=== PATIENT | male | born 1975 | race Caucasian/White ===

== ENCOUNTER → 2020-02-07 | Outpatient (CLI) | payer BC | END | disposition home or self-care (01) | LOC: LABWHC1 14:14 | PROVIDERS: ATTEND Emergency Medicine | DX: Z20.828 Contact with and (suspected) exposure to other viral communicable diseases (principal) | CPT/HCPCS: U0003; C9803 ==

== ENCOUNTER → 2020-08-14 | Outpatient (CLI) | payer BC ==
[2020-08-14 10:57] LABS: ALT 38 U/L (4-49); AST 35 U/L (17-59); African American GFR (CKD) >90 (>60 ml/min/1.73 sqM); Albumin 4.7 g/dL (3.5-5.0); Alkaline Phosphatase 57 U/L (38-126); Anion Gap 11 mmol/L; Blood Urea Nitrogen 14 mg/dL (9-20); Calcium 9.6 mg/dL (8.4-10.2); Carbon Dioxide 23 mmol/L (22-30); Chloride 105 mmol/L (98-107); Cholesterol 220 mg/dL (<200); Glucose 97 mg/dL (74-99); HDL Cholesterol 58 mg/dL (40-60); LDL Cholesterol,Calculated 150 mg/dL (0-99); Non-African American GFR(CKD) >90 (>60 ml/min/1.73 sqM); Potassium 4.4 mmol/L (3.5-5.1); Sodium 139 mmol/L (137-145); Total Bilirubin 0.9 mg/dL (0.2-1.3); Total Protein 7.3 g/dL (6.3-8.2); Triglycerides 60 mg/dL (<150)
[2020-08-14 11:16] LABS: Basophils % (A) 1 %; Eosinophils # (A) 0.1 k/uL (0-0.7); Eosinophils % (A) 2 %; HGB 16.6 gm/dL (13.0-17.5); Lymphocytes # (A) 1.4 k/uL (1.0-4.8); Lymphocytes % (A) 24 %; MCH 30.7 pg (25.0-35.0); MCHC 35.3 g/dL (31.0-37.0); MCV 87.1 fL (80.0-100.0); Mean Platelet Volume 8.1; Monocytes # (A) 0.3 k/uL (0-1.0); Monocytes % (A) 5 %; Neutrophils # (A) 3.8 k/uL (1.3-7.7); Neutrophils % (A) 66 %; Platelet Count 231 k/uL (150-450); RDW 12.1 % (11.5-15.5); WBC 5.8 k/uL (3.8-10.6)
--- NOTE | 2020-08-14 13:19 | ECHOS ---
STRESS ECHOCARDIOGRAM LUMASON: N/A Vial INDICATIONS: Dizziness. MEDICATIONS: BASELINE HEART RATE: 65 BASELINE BLOOD PRESSURE: 107/43 MAXIMUM HEART RATE: 160 MAXIMUM BLOOD PRESSURE: 215/87 85% MPHR: 150 100% MPHR: 177 METS: 15 MAXIMUM STAGE REACHED: V TOTAL EXERCISE TIME: 13-1/2 minutes. CLINICAL INFORMATION: Baseline EKG shows sinus rhythm, normal axis, normal intervals. Patient exercised on Graham protocol for a total of 13-1/2 minutes achieving 15 METs, 90% of predicted maximal heart rate without chest pain. At peak exercise, there was [address]- segment depression noted. Baseline echo shows normal left ventricular size, wall motion and systolic function. Postexercise, there is normal hyperdynamic response of all segments of myocardium noted. CONCLUSIONS: 1. Excellent exercise tolerance. 2. [address]-segment depression at peak exercise. 3. Negative stress echo. MMODL / IJN: [id number] /
== END | disposition home or self-care (01) ==
LOC: RADNMMAIN 09:05
PROVIDERS: ATTEND Family Medicine
DX: R94.39 Abnormal result of other cardiovascular function study (principal); R00.2 Palpitations; Z00.00 Encounter for general adult medical examination without abnormal findings
CPT/HCPCS: 80053; 80061; 83036; 84443; 85025; 93351

== ENCOUNTER 2021-04-28 10:38 | Emergency (ER) | payer BC, OTHER ==
[2021-04-28 10:47] VITALS: RESP 18; TEMP 98
[2021-04-28] MEDS ORDERED: SODIUM CHLORIDE 0.9% 500 ML 500 ML IV STA (11:04)
--- NOTE | 2021-04-28 11:15 | ED ---
General Adult HPI - General Chief complaint: Arrhythmia/Palpitations Stated complaint: Sweaty, elevated pulse Time Seen by Provider: 04/28/21 10:45 Source: patient, RN notes reviewed, old records reviewed Mode of arrival: ambulatory Limitations: no limitations - History of Present Illness Initial comments: This is a 45-year-old male who presents emergency Department complaining that his heart was racing earlier today and he became very sweaty. Patient states he can feel it in his chest beating very fast and hard. Patient states he took his blood pressure was extremely elevated compared to his baseline and his heart rate was in the 90s which is at least 30 point are normal. Patient states she's had 3 episodes like this since the sprain. Patient states it occurred the other day in the store and he was profusely diaphoretic when it occurred. Patient denies any recent fever chills or cough. Patient denies any abdominal pain. Patient is not vomiting diarrhea. Patient denies leg swelling or calf tenderness. Patient states he had an episode of this back in the spring he was seen by Dr. Alvarez and worked up with a stress test and an echo of the heart was all normal. Patient states he also ran a 10K race recently and had no symptoms. - Related Data Home Medications Medication Instructions Recorded Confirmed Fish Oil/Dha/Epa [Fish Oil 1,200 1 cap PO DAILY 11/14/14 04/28/21 mg Fish Oil] Ascorbic Acid/Collagen Hydr 1 cap PO DAILY 04/28/21 04/28/21 [Collagen Plus Vit C Capsule] Biotin 5 mg PO DAILY 04/28/21 04/28/21 Cholecalciferol [Vitamin D3 (125 125 mcg PO DAILY 04/28/21 04/28/21 Mcg = 5000 Iu)] Glucosam/Harjinder-Msm1/C/Eduardo/Bosw 1 tab PO DAILY 04/28/21 04/28/21 [Glucosamine-Chondroitin Tablet] Loratadine [Claritin] 10 mg PO DAILY 04/28/21 04/28/21 Psyllium Husk (with Sugar) 12 gm PO DAILY 04/28/21 04/28/21 [Metamucil Powder] Turmeric Root Extract [Turmeric] 500 mg PO DAILY 04/28/21 04/28/21 Ubidecarenone [Co Q-10] 100 mg PO DAILY 04/28/21 04/28/21 Allergies Allergy/AdvReac Type Severity Reaction Status Date / Time ragweed pollen Allergy Dyspnea Verified 04/28/21 12:12 Review of Systems ROS Statement: Those systems with pertinent positive or pertinent negative responses have been documented in the HPI. ROS Other: All systems not noted in ROS Statement are negative. Past Medical History Additional Past Medical History / Comment(s): NASAL FX 11/05/14 (PLAYING BASKETBALL) History of Any Multi-Drug Resistant Organisms: None Reported Additional Past Surgical History / Comment(s): WISDOM TEETH Past Anesthesia/Blood Transfusion Reactions: No Reported Reaction Past Psychological History: No Psychological Hx Reported Smoking Status: Former smoker Past Alcohol Use History: Occasional Past Drug Use History: None Reported - Past Family History Mother Additional Family Medical History / Comment(s): OSTEOPOROSIS General Exam - General Exam Comments Initial Comments: GENERAL: Patient is well-developed and well-nourished. Patient is nontoxic and well- hydrated and is in mild distress. ENT: Neck is soft and supple. No significant lymphadenopathy is noted. Oropharynx is clear. Moist mucous membranes. Neck has full range of motion without eliciting any pain. EYES: The sclera were anicteric and conjunctiva were pink and moist. Extraocular movements were intact and pupils were equal round and reactive to light. Eyelids were unremarkable. PULMONARY: Unlabored respirations. Good breath sounds bilaterally. No audible rales rhonchi or wheezing was noted. CARDIOVASCULAR: There is a regular rate and rhythm without any murmurs gallops or rubs. ABDOMEN: Soft and nontender with normal bowel sounds. SKIN: Skin is clear with no lesions or rashes and otherwise unremarkable. NEUROLOGIC: Patient is alert and oriented x3. Cranial nerves II through XII are grossly intact. Motor and sensory are also intact. Normal speech, volume and content. Symmetrical smile. MUSCULOSKELETAL: Normal extremities with adequate strength and full range of motion. LYMPHATICS: No significant lymphadenopathy is noted PSYCHIATRIC: Normal psychiatric evaluation. Limitations: no limitations Course Vital Signs 04/28/21 04/28/21 10:43 12:21 Temperature 98 F Pulse Rate 97 70 Respiratory 18 18 Rate Blood Pressure 162/74 140/89 O2 Sat by Pulse 100 99 Oximetry Medical Decision Making - Medical Decision Making EKG shows a normal sinus rhythm at 100 bpm AL interval 256 QRS is 92 QT interval 320 QTC is 448. Patient's EKG shows no ST segment elevation or depression. EKG does have quite a bit of artifact. - Lab Data Result diagrams: 04/28/21 11:45 04/28/21 11:45 Lab Results 04/28/21 04/28/21 04/28/21 Range/Units 11:45 11:45 11:45 WBC 5.0 (3.8-10.6) k/uL RBC 5.04 (4.30-5.90) m/uL Hgb 15.6 (13.0-17.5) gm/dL Hct 45.8 (39.0-53.0) % MCV 90.8 (80.0-100.0) fL MCH 30.9 (25.0-35.0) pg MCHC 34.1 (31.0-37.0) g/dL RDW 12.3 (11.5-15.5) % Plt Count 193 (150-450) k/uL MPV 8.1 Neutrophils % 62 % Lymphocytes % 27 % Monocytes % 6 % Eosinophils % 3 % Basophils % 1 % Neutrophils # 3.1 (1.3-7.7) k/uL Lymphocytes # 1.3 (1.0-4.8) k/uL Monocytes # 0.3 (0-1.0) k/uL Eosinophils # 0.2 (0-0.7) k/uL Basophils # 0.0 (0-0.2) k/uL PT 10.9 (9.0-12.0) sec INR 1.0 (<1.2) APTT 25.8 (22.0-30.0) sec D-Dimer <0.17 (<0.60) mg/L FEU Sodium 138 (137-145) mmol/L Potassium 4.5 (3.5-5.1) mmol/L Chloride 101 (98-107) mmol/L Carbon Dioxide 26 (22-30) mmol/L Anion Gap 11 mmol/L BUN 13 (9-20) mg/dL Creatinine 0.78 (0.66-1.25) mg/dL Est GFR (CKD-EPI)AfAm >90 (>60 ml/min/1.73 sqM) Est GFR (CKD-EPI)NonAf >90 (>60 ml/min/1.73 sqM) Glucose 116 H (74-99) mg/dL Calcium 9.3 (8.4-10.2) mg/dL Magnesium 1.9 (1.6-2.3) mg/dL Total Bilirubin 0.5 (0.2-1.3) mg/dL AST 32 (17-59) U/L ALT 37 (4-49) U/L Alkaline Phosphatase 46 (38-126) U/L Troponin I (0.000-0.034) ng/mL Total Protein 7.3 (6.3-8.2) g/dL Albumin 4.5 (3.5-5.0) g/dL TSH <0.015 L (0.465-4.680) mIU/L Urine Opiates Screen (NotDetected) Ur Oxycodone Screen (NotDetected) Urine Methadone Screen (NotDetected) Ur Propoxyphene Screen (NotDetected) Ur Barbiturates Screen (NotDetected) U Tricyclic Antidepress (NotDetected) Ur Phencyclidine Scrn (NotDetected) Ur Amphetamines Screen (NotDetected) U Methamphetamines Scrn (NotDetected) U Benzodiazepines Scrn (NotDetected) Urine Cocaine Screen (NotDetected) U Marijuana (THC) Screen (NotDetected) 04/28/21 04/28/21 Range/Units 11:45 12:04 WBC (3.8-10.6) k/uL RBC (4.30-5.90) m/uL Hgb (13.0-17.5) gm/dL Hct (39.0-53.0) % MCV (80.0-100.0) fL MCH (25.0-35.0) pg MCHC (31.0-37.0) g/dL RDW (11.5-15.5) % Plt Count (150-450) k/uL MPV Neutrophils % % Lymphocytes % % Monocytes % % Eosinophils % % Basophils % % Neutrophils # (1.3-7.7) k/uL Lymphocytes # (1.0-4.8) k/uL Monocytes # (0-1.0) k/uL Eosinophils # (0-0.7) k/uL Basophils # (0-0.2) k/uL PT (9.0-12.0) sec INR (<1.2) APTT (22.0-30.0) sec D-Dimer (<0.60) mg/L FEU Sodium (137-145) mmol/L Potassium (3.5-5.1) mmol/L Chloride (98-107) mmol/L Carbon Dioxide (22-30) mmol/L Anion Gap mmol/L BUN (9-20) mg/dL Creatinine (0.66-1.25) mg/dL Est GFR (CKD-EPI)AfAm (>60 ml/min/1.73 sqM) Est GFR (CKD-EPI)NonAf (>60 ml/min/1.73 sqM) Glucose (74-99) mg/dL Calcium (8.4-10.2) mg/dL Magnesium (1.6-2.3) mg/dL Total Bilirubin (0.2-1.3) mg/dL AST (17-59) U/L ALT (4-49) U/L Alkaline Phosphatase (38-126) U/L Troponin I <0.012 (0.000-0.034) ng/mL Total Protein (6.3-8.2) g/dL Albumin (3.5-5.0) g/dL TSH (0.465-4.680) mIU/L Urine Opiates Screen Not Detected (NotDetected) Ur Oxycodone Screen Not Detected (NotDetected) Urine Methadone Screen Not Detected (NotDetected) Ur Propoxyphene Screen Not Detected (NotDetected) Ur Barbiturates Screen Not Detected (NotDetected) U Tricyclic Antidepress Not Detected (NotDetected) Ur Phencyclidine Scrn Not Detected (NotDetected) Ur Amphetamines Screen Not Detected (NotDetected) U Methamphetamines Scrn Not Detected (NotDetected) U Benzodiazepines Scrn Not Detected (NotDetected) Urine Cocaine Screen Not Detected (NotDetected) U Marijuana (THC) Screen Not Detected (NotDetected) Disposition Clinical Impression: Palpitations, Abnormal TSH Disposition: HOME SELF-CARE Condition: Good Instructions (If sedation given, give patient instructions): Heart Palpitations (ED) Is patient prescribed a controlled substance at d/c from ED?: No Referrals: Calixto Cardenas MD [Primary Care Provider] - 1-2 days Bruce Alvarez MD [STAFF PHYSICIAN] - 1-2 days Time of Disposition: 12:41
[2021-04-28 12:06] LABS: ALT 37 U/L (4-49); AST 32 U/L (17-59); African American GFR (CKD) >90 (>60 ml/min/1.73 sqM); Albumin 4.5 g/dL (3.5-5.0); Alkaline Phosphatase 46 U/L (38-126); Anion Gap 11 mmol/L; Blood Urea Nitrogen 13 mg/dL (9-20); Calcium 9.3 mg/dL (8.4-10.2); Carbon Dioxide 26 mmol/L (22-30); Chloride 101 mmol/L (98-107); Glucose 116 mg/dL (74-99); Magnesium 1.9 mg/dL (1.6-2.3); Non-African American GFR(CKD) >90 (>60 ml/min/1.73 sqM); Potassium 4.5 mmol/L (3.5-5.1); Sodium 138 mmol/L (137-145); Total Bilirubin 0.5 mg/dL (0.2-1.3); Total Protein 7.3 g/dL (6.3-8.2)
[2021-04-28 12:09] LABS: Basophils % (A) 1 %; Eosinophils # (A) 0.2 k/uL (0-0.7); Eosinophils % (A) 3 %; HCT 45.8 % (39.0-53.0); HGB 15.6 gm/dL (13.0-17.5); Lymphocytes # (A) 1.3 k/uL (1.0-4.8); Lymphocytes % (A) 27 %; MCH 30.9 pg (25.0-35.0); MCHC 34.1 g/dL (31.0-37.0); MCV 90.8 fL (80.0-100.0); Mean Platelet Volume 8.1; Monocytes # (A) 0.3 k/uL (0-1.0); Monocytes % (A) 6 %; Neutrophils # (A) 3.1 k/uL (1.3-7.7); Neutrophils % (A) 62 %; Platelet Count 193 k/uL (150-450); RBC 5.04 m/uL (4.30-5.90); RDW 12.3 % (11.5-15.5)
[2021-04-28 12:19] LABS: Partial Thromboplastin Time 25.8 sec (22.0-30.0); Prothrombin Time 10.9 sec (9.0-12.0)
[2021-04-28 12:24] LABS: Amphetamine Screen,Urine Not Detected (NotDetected); Barbiturate Screen,Urine Not Detected (NotDetected); Benzodiazepines Screen,Urine Not Detected (NotDetected); Cocaine Screen,Urine Not Detected (NotDetected); Methadone Screen, Urine Not Detected (NotDetected); Opiate Screen,Urine Not Detected (NotDetected); Oxycodone Screen, Urine Not Detected (NotDetected); Phencyclidine Screen,Urine Not Detected (NotDetected); Tricyclic Antidepressant,Urine Not Detected (NotDetected); Urn Cannabinoid Scrn Not Detected (NotDetected)
--- NOTE | 2021-04-28 12:37 | XR ---
EXAMINATION TYPE: XR chest 2V DATE OF EXAM: 04/28/2021 COMPARISON: NONE HISTORY: 45 years Male. STUDY INDICATION GIVEN: dysrhythmia . TECHNIQUE: Frontal and lateral chest radiographs. IMPRESSION: Somewhat patchy bibasilar left greater than right opacities concerning for atelectasis and/or focal p neumonia. Small bilateral perihilar lesions of increased density may be reflective of prior granulomatous disea se and/or vessel en face. No pneumothorax or effusion. Normal cardiomediastinal silhouette. No acute osseous abnormality.
[2021-04-28 14:02] VITALS: BP 136/79; PULSE 78
== END 2021-04-28 14:02 | disposition home or self-care (01) ==
LOC: EC 10:38
DX: R00.2 Palpitations (principal); R94.6 Abnormal results of thyroid function studies; Z87.891 Personal history of nicotine dependence
CPT/HCPCS: 36415; 71046; 80053; 80306; 83735; 84439; 84443; 84484; 85025; 85379; 85610; 85730; 93005; 99285

== ENCOUNTER 2023-06-12 08:07 | Emergency (ER) | payer BC, OTHER ==
[2023-06-12 08:54] VITALS: TEMP 98.5
[2023-06-12] MEDS: SODIUM CHLORIDE 0.9% 1,000 ML IV STA (08:56)
[2023-06-12 09:11] LABS: Basophils # (A) 0.1 k/uL (0-0.2); Basophils % (A) 1 %; Eosinophils # (A) 0.2 k/uL (0-0.7); Eosinophils % (A) 4 %; HCT 46.8 % (39.0-53.0); HGB 16.1 gm/dL (13.0-17.5); Lymphocytes # (A) 1.3 k/uL (1.0-4.8); Lymphocytes % (A) 28 %; MCH 30.3 pg (25.0-35.0); MCHC 34.3 g/dL (31.0-37.0); MCV 88.3 fL (80.0-100.0); Monocytes # (A) 0.3 k/uL (0-1.0); Monocytes % (A) 5 %; Neutrophils # (A) 2.8 k/uL (1.3-7.7); Neutrophils % (A) 60 %; Platelet Count 220 k/uL (150-450); RDW 12.2 % (11.5-15.5); WBC 4.7 k/uL (3.8-10.6)
--- NOTE | 2023-06-12 09:17 | XR ---
EXAMINATION TYPE: XR chest 2V DATE OF EXAM: 06/12/2023 COMPARISON: NONE TECHNIQUE: PA and lateral views submitted. HISTORY: Pain FINDINGS: The lungs are clear and there is no pneumothorax, pleural effusion, or focal pneumonia. Heart size normal and no overt failure. Osseous structures demonstrate hypertrophic and degenerative changes of the spine. AC joint arthropathy. IMPRESSION: 1. No acute process.
[2023-06-12 09:21] LABS: ALT 54 U/L (4-49); AST 47 U/L (17-59); African American GFR (CKD) >90 (>60 ml/min/1.73 sqM); Albumin 4.5 g/dL (3.5-5.0); Alkaline Phosphatase 49 U/L (38-126); Anion Gap 8 mmol/L; Blood Urea Nitrogen 13 mg/dL (9-20); Calcium 9.7 mg/dL (8.4-10.2); Carbon Dioxide 24 mmol/L (22-30); Chloride 107 mmol/L (98-107); Glucose 111 mg/dL (74-99); Magnesium 1.8 mg/dL (1.6-2.3); Non-African American GFR(CKD) >90 (>60 ml/min/1.73 sqM); Potassium 4.2 mmol/L (3.5-5.1); Sodium 139 mmol/L (137-145); Total Bilirubin 0.9 mg/dL (0.2-1.3); Total Protein 7.2 g/dL (6.3-8.2)
[2023-06-12 09:25] LABS: INR 1.1 (<1.2); Partial Thromboplastin Time 26.3 sec (22.0-30.0); Prothrombin Time 11.5 sec (10.0-12.5)
--- NOTE | 2023-06-12 09:53 | ED ---
Arrhythmia/Palpitations HPI - General Chief Complaint: Arrhythmia/Palpitations Stated Complaint: Elevated bp Time Seen by Provider: 06/12/23 08:25 Source: patient, RN notes reviewed Mode of arrival: ambulatory Limitations: no limitations - History of Present Illness Initial Comments: 47-year-old male presents emergency department chief complaint of palpitations, hypertension. Patient states that he was at home started folic his chest was fluttering. Patient states he had no chest pain. He states his watch told him his heart rate was 120. He states he ran testing on it and states that did not alarm other than his heart rate. Patient denies any excessive caffeine intake he states he had an episode like this several years ago in which he follow-up with cardiology had stress test with no acute findings. Patient denies any chest pain, shortness of breath, fevers or chills no cough or cold-like symptoms. - Related Data Home Medications Medication Instructions Recorded Confirmed Fish Oil/Dha/Epa [Fish Oil 1,200 1 cap PO DAILY 11/14/14 04/28/21 mg Fish Oil] Ascorbic Acid/Collagen Hydr 1 cap PO DAILY 04/28/21 04/28/21 [Collagen Plus Vit C Capsule] Biotin 5 mg PO DAILY 04/28/21 04/28/21 Cholecalciferol [Vitamin D3 (125 125 mcg PO DAILY 04/28/21 04/28/21 Mcg = 5000 Iu)] Glucosam/Harjinder-Msm1/C/Eduardo/Bosw 1 tab PO DAILY 04/28/21 04/28/21 [Glucosamine-Chondroitin Tablet] Loratadine [Claritin] 10 mg PO DAILY 04/28/21 04/28/21 Psyllium Husk (with Sugar) 12 gm PO DAILY 04/28/21 04/28/21 [Metamucil Powder] Turmeric Root Extract [Turmeric] 500 mg PO DAILY 04/28/21 04/28/21 Ubidecarenone [Co Q-10] 100 mg PO DAILY 04/28/21 04/28/21 Allergies Allergy/AdvReac Type Severity Reaction Status Date / Time ragweed pollen Allergy Dyspnea Verified 06/12/23 08:24 Review of Systems ROS Statement: Those systems with pertinent positive or pertinent negative responses have been documented in the HPI. ROS Other: All systems not noted in ROS Statement are negative. Past Medical History Additional Past Medical History / Comment(s): NASAL FX 7/4/15 (PLAYING BASKETBALL) History of Any Multi-Drug Resistant Organisms: None Reported Additional Past Surgical History / Comment(s): WISDOM TEETH Past Anesthesia/Blood Transfusion Reactions: No Reported Reaction Past Psychological History: No Psychological Hx Reported Smoking Status: Former smoker Past Alcohol Use History: Occasional Past Drug Use History: Marijuana - Past Family History Mother Additional Family Medical History / Comment(s): OSTEOPOROSIS General Exam Limitations: no limitations General appearance: alert, in no apparent distress Head exam: Present: atraumatic, normocephalic, normal inspection Eye exam: Present: normal appearance, PERRL, EOMI. Absent: scleral icterus, conjunctival injection, periorbital swelling ENT exam: Present: normal exam, normal oropharynx, mucous membranes moist Neck exam: Present: normal inspection, full ROM. Absent: tenderness, meningismus, lymphadenopathy Respiratory exam: Present: normal lung sounds bilaterally. Absent: respiratory distress, wheezes, rales, rhonchi, stridor Cardiovascular Exam: Present: regular rate, normal rhythm, normal heart sounds. Absent: systolic murmur, diastolic murmur, rubs, gallop, clicks GI/Abdominal exam: Present: soft, normal bowel sounds. Absent: distended, tenderness, guarding, rebound, rigid Neurological exam: Present: alert, oriented X3 Skin exam: Present: warm, dry, intact, normal color. Absent: rash Course Vital Signs 06/12/23 06/12/23 06/12/23 08:21 08:59 09:02 Temperature 98.5 F Pulse Rate 89 68 Pulse Rate [ 96 Paper Cone Grader ] Respiratory 18 16 Rate Blood Pressure 175/111 136/96 O2 Sat by Pulse 99 95 Oximetry 06/12/23 06/12/23 06/12/23 09:03 10:30 10:35 Temperature Pulse Rate 96 68 Pulse Rate [ Paper Cone Grader ] Respiratory 20 16 16 Rate Blood Pressure 148/96 158/68 O2 Sat by Pulse 98 98 Oximetry Medical Decision Making - Medical Decision Making Was pt. sent in by a medical professional or institution (, PA, EDUCATIONAL MANAGER, urgent care, hospital, or [facility]...) When possible be specific @ -No Did you speak to anyone other than the patient for history (EMS, parent, family, police, friend...)? What history was obtained from this source @ -No Did you review nursing and triage notes (agree or disagree)? Why? @ -I reviewed and agree with nursing and triage notes Were old charts reviewed (outside hosp., previous admission, EMS record, old EKG, old radiological studies, urgent care reports/EKG's, [facility] records)? Report findings @ -No old charts were reviewed Differential Diagnosis (chest pain, altered mental status, abdominal pain women, abdominal pain men, vaginal bleeding, weakness, fever, dyspnea, syncope, headache, dizziness, GI bleed, back pain, seizure, CVA, palpatations, mental health, musculoskeletal)? @ -[Differential Palpitations Ventricular arrhythmias, atrial arrhythmias, myocardial infarction, anemia, thyrotoxicosis, electrolyte imbalance, hypokalemia, pulmonary embolism, pulmonary disease, drugs, alcohol, anxiety, stress.... This is not meant to be an all-inclusive list. EKG interpreted by me (3pts min.). @ -As above X-rays interpreted by me (1pt min.). @ -Chest ray is unremarkable, no acute cardiopulmonary process CT interpreted by me (1pt min.). @ -None done U/S interpreted by me (1pt. min.). @ -None done What testing was considered but not performed or refused? (CT, X-rays, U/S, labs)? Why? @ -None What meds were considered but not given or refused? Why? @ -None Did you discuss the management of the patient with other professionals (professionals i.e. , PA, EDUCATIONAL MANAGER, lab, RT, psych nurse, case management social worker, simulation tech, teacher, agricultural extension officer, telehealth case manager)? Give summary @ -No Was smoking cessation discussed for >3mins.? @ -No Was critical care preformed (if so, how long)? @ -No Were there social determinants of health that impacted care today? How? (Homelessness, low income, unemployed, alcoholism, drug addiction, transp ortation, low edu. Level, literacy, decrease access to med. care, long term, rehab)? @ -No Was there de-escalation of care discussed even if they declined (Discuss DNR or withdrawal of care, Hospice)? DNR status @ -No What co-morbidities impacted this encounter? (DM, HTN, Smoking, COPD, CAD, Cancer, CVA, ARF, Chemo, Hep., AIDS, mental health diagnosis, sleep apnea, morbid obesity)? @ -None Was patient admitted / discharged? Hospital course, mention meds given and route, prescriptions, significant lab abnormalities, going to OR and other pertinent info. @ -Patient remains to be asymptomatic blood pressure within normal limits. Patient presented for palpitations with no acute or malady findings. He will follow-up with Dr. Whelan as he is seen in the past we did discuss return parameters patient agrees with plan. Undiagnosed new problem with uncertain prognosis? @ -No Drug Therapy requiring intensive monitoring for toxicity (Heparin, Nitro, Insulin, Cardizem)? @ -No Were any procedures done? @ -No Diagnosis/symptom? @ -Palpitations Acute, or Chronic, or Acute on Chronic? @ -Acute Uncomplicated (without systemic symptoms) or Complicated (systemic symptoms)? @ -Uncomplicated Side effects of treatment? @ -No Exacerbation, Progression, or Severe Exacerbation? @ -No Poses a threat to life or bodily function? How? (Chest pain, [place], [place], pneumonia, PE, COPD, DKA, ARF, appy, cholecystitis, CVA, Diverticulitis, Homicidal, Suicidal, threat to staff... and all critical care pts) @ -No - Lab Data Result diagrams: 06/12/23 08:46 06/12/23 08:46 Lab Results 06/12/23 06/12/23 06/12/23 Range/Units 08:46 08:46 08:46 WBC 4.7 (3.8-10.6) k/uL RBC 5.30 (4.30-5.90) m/uL Hgb 16.1 (13.0-17.5) gm/dL Hct 46.8 (39.0-53.0) % MCV 88.3 (80.0-100.0) fL MCH 30.3 (25.0-35.0) pg MCHC 34.3 (31.0-37.0) g/dL RDW 12.2 (11.5-15.5) % Plt Count 220 (150-450) k/uL MPV 8.0 Neutrophils % 60 % Lymphocytes % 28 % Monocytes % 5 % Eosinophils % 4 % Basophils % 1 % Neutrophils # 2.8 (1.3-7.7) k/uL Lymphocytes # 1.3 (1.0-4.8) k/uL Monocytes # 0.3 (0-1.0) k/uL Eosinophils # 0.2 (0-0.7) k/uL Basophils # 0.1 (0-0.2) k/uL PT 11.5 (10.0-12.5) sec INR 1.1 (<1.2) APTT 26.3 (22.0-30.0) sec D-Dimer <0.17 (<0.60) mg/L FEU Sodium 139 (137-145) mmol/L Potassium 4.2 (3.5-5.1) mmol/L Chloride 107 (98-107) mmol/L Carbon Dioxide 24 (22-30) mmol/L Anion Gap 8 mmol/L BUN 13 (9-20) mg/dL Creatinine 0.78 (0.66-1.25) mg/dL Est GFR (CKD-EPI)AfAm >90 (>60 ml/min/1.73 sqM) Est GFR (CKD-EPI)NonAf >90 (>60 ml/min/1.73 sqM) Glucose 111 H (74-99) mg/dL Calcium 9.7 (8.4-10.2) mg/dL Magnesium 1.8 (1.6-2.3) mg/dL Total Bilirubin 0.9 (0.2-1.3) mg/dL AST 47 (17-59) U/L ALT 54 H (4-49) U/L Alkaline Phosphatase 49 (38-126) U/L Troponin I (0.000-0.034) ng/mL Total Protein 7.2 (6.3-8.2) g/dL Albumin 4.5 (3.5-5.0) g/dL 06/12/23 Range/Units 08:46 WBC (3.8-10.6) k/uL RBC (4.30-5.90) m/uL Hgb (13.0-17.5) gm/dL Hct (39.0-53.0) % MCV (80.0-100.0) fL MCH (25.0-35.0) pg MCHC (31.0-37.0) g/dL RDW (11.5-15.5) % Plt Count (150-450) k/uL MPV Neutrophils % % Lymphocytes % % Monocytes % % Eosinophils % % Basophils % % Neutrophils # (1.3-7.7) k/uL Lymphocytes # (1.0-4.8) k/uL Monocytes # (0-1.0) k/uL Eosinophils # (0-0.7) k/uL Basophils # (0-0.2) k/uL PT (10.0-12.5) sec INR (<1.2) APTT (22.0-30.0) sec D-Dimer (<0.60) mg/L FEU Sodium (137-145) mmol/L Potassium (3.5-5.1) mmol/L Chloride (98-107) mmol/L Carbon Dioxide (22-30) mmol/L Anion Gap mmol/L BUN (9-20) mg/dL Creatinine (0.66-1.25) mg/dL Est GFR (CKD-EPI)AfAm (>60 ml/min/1.73 sqM) Est GFR (CKD-EPI)NonAf (>60 ml/min/1.73 sqM) Glucose (74-99) mg/dL Calcium (8.4-10.2) mg/dL Magnesium (1.6-2.3) mg/dL Total Bilirubin (0.2-1.3) mg/dL AST (17-59) U/L ALT (4-49) U/L Alkaline Phosphatase (38-126) U/L Troponin I <0.012 (0.000-0.034) ng/mL Total Protein (6.3-8.2) g/dL Albumin (3.5-5.0) g/dL Disposition Clinical Impression: Heart palpitations Disposition: HOME SELF-CARE Condition: Stable Instructions (If sedation given, give patient instructions): Heart Palpitations (ED) Additional Instructions: Please return to the Emergency Department if symptoms worsen or any other concerns. Is patient prescribed a controlled substance at d/c from ED?: No Referrals: Calixto Cardenas MD [Primary Care Provider] - 1-2 days Time of Disposition: 10:18
[2023-06-12 10:31] VITALS: RESP 16
[2023-06-12 11:01] VITALS: BP 158/68; PULSE 68
== END 2023-06-12 10:50 | disposition home or self-care (01) ==
LOC: EC 08:07
DX: R00.2 Palpitations (principal); F12.90 Cannabis use, unspecified, uncomplicated; Z87.891 Personal history of nicotine dependence; Z88.8 Allergy status to other drugs, medicaments and biological substances
CPT/HCPCS: 36415; 71046; 80053; 83735; 84484; 85025; 85379; 85610; 85730; 93005; 96360; 96361; 99285

== ENCOUNTER 2023-06-14 12:10 | Emergency (ER) | payer BC ==
[2023-06-14 12:33] VITALS: RESP 20
[2023-06-14 12:42] LABS: Basophils # (A) 0.1 k/uL (0-0.2); Basophils % (A) 1 %; Eosinophils # (A) 0.3 k/uL (0-0.7); Eosinophils % (A) 4 %; HCT 47.3 % (39.0-53.0); HGB 16.6 gm/dL (13.0-17.5); Lymphocytes # (A) 1.7 k/uL (1.0-4.8); Lymphocytes % (A) 24 %; MCH 30.5 pg (25.0-35.0); MCHC 35.2 g/dL (31.0-37.0); MCV 86.5 fL (80.0-100.0); Mean Platelet Volume 8.5; Monocytes # (A) 0.3 k/uL (0-1.0); Monocytes % (A) 4 %; Neutrophils # (A) 4.7 k/uL (1.3-7.7); Neutrophils % (A) 66 %; Platelet Count 231 k/uL (150-450); RBC 5.46 m/uL (4.30-5.90); RDW 12.4 % (11.5-15.5); WBC 7.2 k/uL (3.8-10.6)
--- NOTE | 2023-06-14 12:43 | ED ---
General Adult HPI - General Chief complaint: Arrhythmia/Palpitations Stated complaint: Palpitations Time Seen by Provider: 06/14/23 12:12 Source: patient, RN notes reviewed, old records reviewed Mode of arrival: ambulatory Limitations: no limitations - History of Present Illness Initial comments: 47-year-old male with several episodes of palpitations. Patient was seen in the emergency department 2 days prior for evaluation of palpitations. He has no associated chest pain. No dyspnea. Denies lightheadedness. Denies cough. Denies fever. Denies vomiting or diarrhea. Patient states that he does drink caffeine but has not recently increased his consumption. No other stimulants noted. - Related Data Home Medications Medication Instructions Recorded Confirmed Fish Oil/Dha/Epa [Fish Oil 1,200 1 cap PO DAILY 11/14/14 04/28/21 mg Fish Oil] Ascorbic Acid/Collagen Hydr 1 cap PO DAILY 04/28/21 04/28/21 [Collagen Plus Vit C Capsule] Biotin 5 mg PO DAILY 04/28/21 04/28/21 Cholecalciferol [Vitamin D3 (125 125 mcg PO DAILY 04/28/21 04/28/21 Mcg = 5000 Iu)] Glucosam/Harjinder-Msm1/C/Eduardo/Bosw 1 tab PO DAILY 04/28/21 04/28/21 [Glucosamine-Chondroitin Tablet] Loratadine [Claritin] 10 mg PO DAILY 04/28/21 04/28/21 Psyllium Husk (with Sugar) 12 gm PO DAILY 04/28/21 04/28/21 [Metamucil Powder] Turmeric Root Extract [Turmeric] 500 mg PO DAILY 04/28/21 04/28/21 Ubidecarenone [Co Q-10] 100 mg PO DAILY 04/28/21 04/28/21 Allergies Allergy/AdvReac Type Severity Reaction Status Date / Time ragweed pollen Allergy Dyspnea Verified 06/14/23 12:16 Review of Systems ROS Statement: Those systems with pertinent positive or pertinent negative responses have been documented in the HPI. ROS Other: All systems not noted in ROS Statement are negative. Past Medical History Additional Past Medical History / Comment(s): NASAL FX 11/05/14 (PLAYING B ASKETBALL) History of Any Multi-Drug Resistant Organisms: None Reported Additional Past Surgical History / Comment(s): WISDOM TEETH Past Anesthesia/Blood Transfusion Reactions: No Reported Reaction Past Psychological History: No Psychological Hx Reported Smoking Status: Former smoker Past Alcohol Use History: Occasional Past Drug Use History: Marijuana - Past Family History Mother Additional Family Medical History / Comment(s): OSTEOPOROSIS General Exam Limitations: no limitations General appearance: alert, in no apparent distress Head exam: Present: atraumatic, normocephalic Eye exam: Present: normal appearance, PERRL ENT exam: Present: normal exam Neck exam: Present: normal inspection. Absent: tenderness, meningismus Respiratory exam: Present: normal lung sounds bilaterally. Absent: respiratory distress, wheezes Cardiovascular Exam: Present: regular rate, normal rhythm GI/Abdominal exam: Present: soft. Absent: distended, tenderness Extremities exam: Present: normal inspection, normal capillary refill. Absent: pedal edema, calf tenderness Neurological exam: Present: alert, oriented X3, CN II-XII intact. Absent: motor sensory deficit Psychiatric exam: Present: normal affect, normal mood Skin exam: Present: warm, dry, intact Course Vital Signs 06/14/23 06/14/23 12:13 13:00 Temperature 99.0 F Pulse Rate 79 67 Respiratory 20 20 Rate Blood Pressure 149/93 131/93 O2 Sat by Pulse 99 95 Oximetry Medical Decision Making - Medical Decision Making Was pt. sent in by a medical professional or institution (, PA, CHIEF CATALYST OPERATOR, urgent care, hospital, or jail...) When possible be specific @ -No Did you speak to anyone other than the patient for history (EMS, parent, family, police, friend...)? What history was obtained from this source @ -No Did you review nursing and triage notes (agree or disagree)? Why? @ -I reviewed and agree with nursing and triage notes Were old charts reviewed (outside hosp., previous admission, EMS record, old EKG, old radiological studies, urgent care reports/EKG's, jail records)? Report findings @ -No old charts were reviewed Differential Diagnosis (chest pain, altered mental status, abdominal pain women, abdominal pain men, vaginal bleeding, weakness, fever, dyspnea, syncope, headache, dizziness, GI bleed, back pain, seizure, CVA, palpatations, mental health, musculoskeletal)? @ -[Differential Palpitations Ventricular arrhythmias, atrial arrhythmias, myocardial infarction, anemia, thyrotoxicosis, electrolyte imbalance, hypokalemia, pulmonary embolism, pulmonary disease, drugs, alcohol, anxiety, stress.... This is not meant to be an all-inclusive list. EKG interpreted by me (3pts min.). @ -EKG: Sinus rhythm rate of 78 W[place] interval 146, QRS duration 95, QTc [address] segment changes. X-rays interpreted by me (1pt min.). @ -None done CT interpreted by me (1pt min.). @ -None done U/S interpreted by me (1pt. min.). @ -None done What testing was considered but not performed or refused? (CT, X-rays, U/S, labs)? Why? @ -None What meds were considered but not given or refused? Why? @ -None Did you discuss the management of the patient with other professionals (professionals i.e. , PA, CHIEF CATALYST OPERATOR, lab, RT, psych nurse, social worker school, technical intern, teacher, service officer, behavioral health case manager)? Give summary @ -No Was smoking cessation discussed for >3mins.? @ -No Was critical care preformed (if so, how long)? @ -No Were there social determinants of health that impacted care today? How? (Homelessness, low income, unemployed, alcoholism, drug addiction, transportation, low edu. Level, literacy, decrease access to med. care, [facility], rehab)? @ -No Was there de-escalation of care discussed even if they declined (Discuss DNR or withdrawal of care, Hospice)? DNR status @ -No What co-morbidities impacted this encounter? (DM, HTN, Smoking, COPD, CAD, Cancer, CVA, ARF, Chemo, Hep., AIDS, mental health diagnosis, sleep apnea, mo rbid obesity)? @ -None Was patient admitted / discharged? Hospital course, mention meds given and r oute, prescriptions, significant lab abnormalities, going to OR and other pertinent info. @ -[47 old male presents with palpitations. Patient is in sinus rhythm. Normal vitals otherwise. Patient had d-dimer and chest x-ray performed 2 days prior which were unremarkable. His laboratory testing continues to be within normal limits without maladies. Patient reevaluated still in sinus rhythm. He states he'll make an appointment with his primary care provider on Friday and has a problem with cardiology later this month. Undiagnosed new problem with uncertain prognosis? @ -No Drug Therapy requiring intensive monitoring for toxicity (Heparin, Nitro, Insulin, Cardizem)? @ -No Were any procedures done? @ -No Diagnosis/symptom? @ -Palpitations Acute, or Chronic, or Acute on Chronic? @ -acute Uncomplicated (without systemic symptoms) or Complicated (systemic symptoms)? @ -default Side effects of treatment? @ -No Exacerbation, Progression, or Severe Exacerbation? @ -No Poses a threat to life or bodily function? How? (Chest pain, USA, LA, pneumonia, PE, COPD, DKA, ARF, appy, cholecystitis, CVA, Diverticulitis, Homicidal, Suicidal, threat to staff... and all critical care pts) @ -low risk - Lab Data Result diagrams: 06/14/23 12:35 06/14/23 12:35 Lab Results 06/14/23 06/14/23 06/14/23 Range/Units 12:35 12:35 12:35 WBC 7.2 (3.8-10.6) k/uL RBC 5.46 (4.30-5.90) m/uL Hgb 16.6 (13.0-17.5) gm/dL Hct 47.3 (39.0-53.0) % MCV 86.5 (80.0-100.0) fL MCH 30.5 (25.0-35.0) pg MCHC 35.2 (31.0-37.0) g/dL RDW 12.4 (11.5-15.5) % Plt Count 231 (150-450) k/uL MPV 8.5 Neutrophils % 66 % Lymphocytes % 24 % Monocytes % 4 % Eosinophils % 4 % Basophils % 1 % Neutrophils # 4.7 (1.3-7.7) k/uL Lymphocytes # 1.7 (1.0-4.8) k/uL Monocytes # 0.3 (0-1.0) k/uL Eosinophils # 0.3 (0-0.7) k/uL Basophils # 0.1 (0-0.2) k/uL PT 11.0 (10.0-12.5) sec INR 1.0 (<1.2) APTT 26.8 (22.0-30.0) sec Sodium 141 (137-145) mmol/L Potassium 4.2 (3.5-5.1) mmol/L Chloride 106 (98-107) mmol/L Carbon Dioxide 25 (22-30) mmol/L Anion Gap 10 mmol/L BUN 14 (9-20) mg/dL Creatinine 0.83 (0.66-1.25) mg/dL Est GFR (CKD-EPI)AfAm >90 (>60 ml/min/1.73 sqM) Est GFR (CKD-EPI)NonAf >90 (>60 ml/min/1.73 sqM) Glucose 113 H (74-99) mg/dL Calcium 9.5 (8.4-10.2) mg/dL Magnesium 1.9 (1.6-2.3) mg/dL Total Bilirubin 0.7 (0.2-1.3) mg/dL AST 43 (17-59) U/L ALT 61 H (4-49) U/L Alkaline Phosphatase 52 (38-126) U/L Troponin I (0.000-0.034) ng/mL Total Protein 7.5 (6.3-8.2) g/dL Albumin 4.8 (3.5-5.0) g/dL TSH 0.067 L (0.465-4.680) mIU/L Free T4 (0.78-2.19) ng/dL 06/14/23 06/14/23 Range/Units 12:35 12:35 WBC (3.8-10.6) k/uL RBC (4.30-5.90) m/uL Hgb (13.0-17.5) gm/dL Hct (39.0-53.0) % MCV (80.0-100.0) fL MCH (25.0-35.0) pg MCHC (31.0-37.0) g/dL RDW (11.5-15.5) % Plt Count (150-450) k/uL MPV Neutrophils % % Lymphocytes % % Monocytes % % Eosinophils % % Basophils % % Neutrophils # (1.3-7.7) k/uL Lymphocytes # (1.0-4.8) k/uL Monocytes # (0-1.0) k/uL Eosinophils # (0-0.7) k/uL Basophils # (0-0.2) k/uL PT (10.0-12.5) sec INR (<1.2) APTT (22.0-30.0) sec Sodium (137-145) mmol/L Potassium (3.5-5.1) mmol/L Chloride (98-107) mmol/L Carbon Dioxide (22-30) mmol/L Anion Gap mmol/L BUN (9-20) mg/dL Creatinine (0.66-1.25) mg/dL Est GFR (CKD-EPI)AfAm (>60 ml/min/1.73 sqM) Est GFR (CKD-EPI)NonAf (>60 ml/min/1.73 sqM) Glucose (74-99) mg/dL Calcium (8.4-10.2) mg/dL Magnesium (1.6-2.3) mg/dL Total Bilirubin (0.2-1.3) mg/dL AST (17-59) U/L ALT (4-49) U/L Alkaline Phosphatase (38-126) U/L Troponin I <0.012 (0.000-0.034) ng/mL Total Protein (6.3-8.2) g/dL Albumin (3.5-5.0) g/dL TSH (0.465-4.680) mIU/L Free T4 1.21 (0.78-2.19) ng/dL Disposition Clinical Impression: Heart palpitations Disposition: HOME SELF-CARE Condition: Good Instructions (If sedation given, give patient instructions): Heart Palpitations (ED) Is patient prescribed a controlled substance at d/c from ED?: No Referrals: Calixto Cardenas MD [Primary Care Provider] - 1-2 days Time of Disposition: 14:24
[2023-06-14 12:57] LABS: ALT 61 U/L (4-49); AST 43 U/L (17-59); African American GFR (CKD) >90 (>60 ml/min/1.73 sqM); Albumin 4.8 g/dL (3.5-5.0); Alkaline Phosphatase 52 U/L (38-126); Anion Gap 10 mmol/L; Blood Urea Nitrogen 14 mg/dL (9-20); Calcium 9.5 mg/dL (8.4-10.2); Carbon Dioxide 25 mmol/L (22-30); Chloride 106 mmol/L (98-107); Glucose 113 mg/dL (74-99); Magnesium 1.9 mg/dL (1.6-2.3); Non-African American GFR(CKD) >90 (>60 ml/min/1.73 sqM); Potassium 4.2 mmol/L (3.5-5.1); Sodium 141 mmol/L (137-145); Total Bilirubin 0.7 mg/dL (0.2-1.3); Total Protein 7.5 g/dL (6.3-8.2)
[2023-06-14 13:30] LABS: Partial Thromboplastin Time 26.8 sec (22.0-30.0)
[2023-06-14 15:16] VITALS: BP 130/83; PULSE 60; TEMP 97.6
== END 2023-06-14 14:54 | disposition home or self-care (01) ==
LOC: EC 12:10
DX: R00.2 Palpitations (principal); F12.90 Cannabis use, unspecified, uncomplicated; Z87.891 Personal history of nicotine dependence; Z88.8 Allergy status to other drugs, medicaments and biological substances; Z91.030 Bee allergy status
CPT/HCPCS: 36415; 80053; 83735; 84439; 84443; 84484; 85025; 85610; 85730; 93005; 99285